=== PATIENT | female | born 1970 | race Hispanic/Latino ===

== ENCOUNTER 2022-07-28 05:34 | Emergency (ER) | payer OTHER ==
[~2022-07-28] VITALS: Ht 160 cm; Wt 61.2 kg
[2022-07-28] MEDS ORDERED: ETOMIDATE 20MG VIAL IVP ONE (05:35)
[2022-07-28] MEDS ORDERED: ROCURONIUM BROMIDE 10MG/1ML 5ML VL IV ONE (05:35)
[2022-07-28] MEDS ORDERED: FENTANYL 2500MCG+NS 250ML 250 ML IV ONE (05:46)
[2022-07-28] MEDS ORDERED: MIDAZOLAM 100MG-0.9% NS 100ML 100ML BAG IV ONE (06:00)
[2022-07-28] MEDS ORDERED: FENTANYL 2500MCG+NS 250ML IV.SOLN IV SCH (06:00)
[2022-07-28] MEDS ORDERED: IOHEXOL 350 MG/ML 100ML INFUS..BTL IV ONE (06:05)
[2022-07-28 06:11] LABS: BASOPHILS % (AUTO) 0.7 % (0.0-5.0); EOSINOPHILS % (AUTO) 0.8 % (0.0-8.0); HEMATOCRIT 40.7 % (36-48); LYMPHOCYTES % (AUTO) 28.4 % (21.0-51.0); MEAN CORPUSCULAR HEMOGLOBIN 29.1 pg (27.0-33.0); MEAN CORPUSCULAR HGB CONC 32.4 g/dL (32.0-36.0); MEAN CORPUSCULAR VOLUME 89.6 fL (79-99); MONOCYTES % (AUTO) 3.8 % (3.0-13.0); NEUTROPHILS % (AUTO) 65.3 % (40.0-77.0); PLATELET COUNT (AUTO) 273 K/uL (130-400); RED BLOOD CELL COUNT(AUTO) 4.54 MIL/uL (4.00-5.50); RED CELL DISTRIBUTION WIDTH 12.8 % (11.0-15.5); WHITE BLOOD COUNT (AUTO) 9.2 K/uL (4.8-10.8)
[2022-07-28 06:13] LABS: APPEARANCE,URINE CLOUDY (CLEAR); BILIRUBIN,URINE NEGATIVE (NEGATIVE); COLOR,URINE LIGHT-YELLOW (YELLOW); GLUCOSE, URINE (UA) 300 mg/dL (NEGATIVE); KETONES,URINE NEGATIVE (NEGATIVE); LEUKOCYTE ESTERASE ,URINE NEGATIVE Leu/uL (NEGATIVE); NITRATE,URINE NEGATIVE (NEGATIVE); OCCULT BLOOD,URINE SMALL (NEGATIVE); PH,URINE 7.5 (5.0-8.0); PROTEIN,URINE 10 mg/dL (NEGATIVE); UROBILINOGEN,URINE 0.2 mg/dL (0.2-1.0)
[2022-07-28] MEDS ORDERED: LEVETIRACETAM 500 MG/5 ML SD VIAL IV ONE (06:24)
[2022-07-28 06:25] LABS: AMPHET/METH SCREEN,URINE NEGATIVE (NEGATIVE); BARBITURATE SCREEN, URINE NEGATIVE (NEGATIVE); BENZODIAZEPINES SCREEN,URINE NEGATIVE (NEGATIVE); CANNABINOID SCREEN,URINE POSITIVE (NEGATIVE); COCAINE SCREEN,URINE NEGATIVE (NEGATIVE); OPIATE SCREEN,URINE NEGATIVE (NEGATIVE); PHENCYCLIDINE SCREEN,URINE NEGATIVE (NEGATIVE); PROTHROMBIN TIME 10.9 SEC (9.6-11.6)
[2022-07-28 06:26] LABS: PARTIAL THROMBOPLASTIN TIME 28.2 SEC (26.3-35.5)
[2022-07-28] MEDS ORDERED: NICARDIPINE 25MG INJ IV ONE (06:26)
[2022-07-28] MEDS ORDERED: DEXAMETHASONE SOD PHOSPHATE 4 MG/ML 1ML VIAL IV ONE (06:30)
[2022-07-28] MEDS ORDERED: NICARDIPINE 25MG INJ 25 MG in 0.9% NACL 250ML 240 ML IV SCH (06:30)
[2022-07-28] MEDS ORDERED: LEVETIRACETAM 1,000 MG in 0.9%NACL 100ML 100 ML IV ONE (06:30)
[2022-07-28] MEDS ORDERED: LEVETIRACETAM 500 MG/5 ML SD VIAL IV SCH (06:30)
[2022-07-28 06:57] VITALS: BP 134/68
[2022-07-28 07:12] LABS: ALANINE AMINOTRANSFERASE 12 U/L (12-78); ALCOHOL, BLOOD 6 mg/dL (0-10); ASPARTATE AMINOTRANSFERASE 31 U/L (10-37); CARBON DIOXIDE 20 mmol/L (21-32); CREATININE 1.1 mg/dL (0.5-1.5); GLOMERULAR FILTR. RATE CALC 55 mL/min (>60); GLUCOSE,RANDOM 207 mg/dL (70-105); TOTAL PROTEIN, SERUM 7.8 g/dL (6.0-8.3); UREA NITROGEN, BLOOD 13 mg/dL (7-18)
[2022-07-28 07:15] LABS: B-TYPE NATRIURETIC PEPTIDE 18 pg/mL (0-100)
[2022-07-28 07:16] LABS: CHLORIDE 100 mmol/L (101-111); POTASSIUM 3.1 mmol/L (3.5-5.1); SODIUM SERUM 137 mmol/L (136-145)
[2022-07-28 08:03] LABS: SALICYLATE 10.2 mg/dL (2.8-20.0)
[2022-07-28 08:10] LABS: ACETAMINOPHEN < 1 mcg/mL (10-30)
== END 2022-07-28 08:33 | disposition short-term general hospital (02) ==
LOC: EDH 05:34
DX: I60.9 Nontraumatic subarachnoid hemorrhage, unspecified (principal); I62.9 Nontraumatic intracranial hemorrhage, unspecified; I61.9 Nontraumatic intracerebral hemorrhage, unspecified
CPT/HCPCS: 84484; 80053; 83880; 80305; 85025; 85610; 85730; 87040 ×2; 87088; 83605; 81001; 36415; 71045; 70450; 96365; 99291; 96368; 93005; 94002; 31500; G0481; J3010; J1953 ×2; J3490 ×4; J1100; J7050; A9900; Q9967